=== PATIENT | female | born 1940 | race Two or more races ===

== ENCOUNTER 2021-05-04 11:45 | Inpatient (IN) | payer OTHER ==
[~2021-05-04] VITALS: Ht 30.5 cm; Wt 53.5 kg
[2021-05-08] MEDS ORDERED: CLOTRIMAZOLE-BE15 G1 (09:41)
[2021-05-15] MEDS ORDERED: INTEGRA F CAPS1 EACH PO (11:15)
== END 2021-05-15 20:36 | disposition home or self-care (01) | DRG 331 ==
LOC: SURH 05-08 06:08 → O/R 05-08 06:08 → SURH 05-08 07:00 → O/R 05-08 07:34 → SURH 05-08 11:45
PROVIDERS: ADMIT Surgery; ATTEND Surgery
PROC: 0DBP0ZZ Excision of Rectum, Open Approach (ICD-10-PCS; 2021-05-08)
PROC: 0DBB4ZZ Excision of Ileum, Percutaneous Endoscopic Approach (ICD-10-PCS; 2021-05-08)
PROC: 4A12X4Z Monitoring of Cardiac Electrical Activity, External Approach (ICD-10-PCS; 2021-05-08)
PROC: 0DTN0ZZ Resection of Sigmoid Colon, Open Approach (ICD-10-PCS; principal; 2021-05-08 07:00)
PROC: 02HV33Z Insertion of Infusion Device into Superior Vena Cava, Percutaneous Approach (ICD-10-PCS; 2021-05-11)
DX: C19 Malignant neoplasm of rectosigmoid junction (principal); Z43.2 Encounter for attention to ileostomy; R59.0 Localized enlarged lymph nodes; I10 Essential (primary) hypertension